=== PATIENT | female | born 1940 | race Caucasian/White ===

== ENCOUNTER 2024-10-08 23:19 | Inpatient (IN) | payer OTHER, SELFPAY ==
[2024-10-08 20:41] VITALS: BP 164/99
[2024-10-08 20:51] VITALS: BP 160/106
[2024-10-08 20:58] VITALS: BMI 22.6
[2024-10-08 21:00] VITALS: BP 164/118
--- NOTE | 2024-10-08 21:01 | ED.GENMED ---
History of Present Illness
General
Chief Complaint: Breathing Problem
Source: patient
Exam Limitations: none
Time Seen by Provider: 10/08/24 20:57
History of Present Illness
History of Present Illness:
See MDM
Past History
Past History
ED Past Medical History: COPD
ED Past Surgical History: None
Social History
Tobacco: Former smoker
Alcohol: None
Phy Exam
Physical Exam
Physical Exam:
See MDM
Scores
Heart Failure Risk
Heart Failure Risk Score: Yes
History of Stroke or TIA: No
History of intubation for respiratory distress: No
Heart rate on ED arrival >/= 110: Yes
SaO2 <90% on arrival on room air: Yes
HR >/=110 during 3min walk test (or too ill to perform test): Yes
ECG has acute ischemic changes: No
Urea >/=12mmol/L (BUN 33.6mg/dL): No
Serum CO2>/=35mmol/L: No
Troponin I or T elevated to AL Level (0.4mg/dL): No
NT-proBNP >/=5,000ng/L (5,000pg/ml): No
HF Risk Score: 3
Admission Status: HIGH RISK 15.9% Consider SNF treatment or admission to hospital
Course
Orders/Labs/Results
Orders:
Orders
10/08/24 20:54
Electrocardiogram (*1) Urgent
Reason for Study: Other
Other Reason for Exam: Respiratory Distress
Cardiac Monitoring- Treatment ONCE
EKG- Treatment ONCE
IV Insert/Care/Rem.- Treatment PRN
O2 Therapy [RESP] Urgent
Titrate/Wean O2 to maintain O2 sat greater than (%): 93
Special Instructions: TO MAINTAIN CONTINUOUS O2 SATS >/= 93%
Pulse Ox/cont/shift [RESP] Urgent
Quantity: 1
Special Instructions: continuous pulse ox
10/08/24 21:01
CT Chest Pe Study Urgent
Comment:
Reason For Exam: sudden onset sob and hypoxia
Albuterol Sulfate [Ventolin Nebules] 7.5 mg INH R NOW STA
Dexamethasone Sod Phosphate [Decadron] 10 mg IV NOW STA
Ipratropium Nebs [Atrovent Nebules] 1 mg INH R NOW STA
Portable Chest Xray [CR Chest Portable - 1 View] Urgent
Comment:
Reason For Exam: SOB
Reason Study Needs to be Portable: Patient Unstable
10/08/24 21:05
Complete Blood Count/With Diff Urgent
Comprehensive Metabolic Panel Urgent
NT-proBNP Urgent
Troponin I Urgent
10/08/24 21:31
Piperacillin/Tazo 3.375 Gram [Zosyn] 3.375 gram in 50 ml IV NOW
Vancomycin [Vancocin] 1,500 mg 0.9% Sodium Chloride 500 ml [Nss] 500 ml IV NOW
10/08/24 22:44
Furosemide [Lasix] 40 mg IV NOW STA
Abnormal Lab Results
10/08/24
21:05
MCHC 31.1 L g/dL
(33.0-37.0)
Lymphocytes % 20.2 L %
(20.5-51.1)
Eosinophils % 9.6 H %
(0-6)
Sodium 124 L mmol/L
(135-145)
Chloride 91 L mmol/L
(98-107)
Glucose 173 H mg/dl
(70-99)
AST 49 H U/L
(14-36)
10/08/24 21:05
10/08/24 21:05
Vital Signs
Initial and Last Documented VS:
Initial Vital Signs
Temp Pulse Resp BP Pulse Ox
97.9 F 135 30 164/99 60
10/08/24 20:41 10/08/24 20:41 10/08/24 20:41 10/08/24 20:41 10/08/24 20:41
Last Documented Vital Signs
Temp Pulse Resp BP Pulse Ox
97.9 F 125 25 164/118 90
10/08/24 20:41 10/08/24 21:30 10/08/24 21:15 10/08/24 21:00 10/08/24 21:30
MDM/Problems Addressed
Differential Diagnosis Includes:
HPI and MDM Narrative:
84-year-old female presenting with sudden onset of shortness of breath. She was dancing with her and developed sudden onset of shortness of breath. She sat down and the realized that she was extremely uncomfortable and had labored
breathing. On arrival, patient tachypneic and very short of breath. She was placed on a nonrebreather for hypoxia. Patient states this does not feel like her normal COPD. Patient has prolonged expiratory phase. Will give hour-long nebulizer
treatment and start IV steroid. Patient transition to BiPAP. Will obtain CT to rule out PE
Physical exam
General: Uncomfortable, labored breathing, conversational dyspnea
HEENT: protecting airway
Neck: appears supple
CV: No evidence of cyanosis. Tachycardic
Resp: No accessory muscle use. Prolonged expiratory phase. Poor air exchange
Abd: Non-distended
Extremities: Mild +1 pitting edema bilateral lower extremities
Neuro: alert
Psych: Anxious
Skin: Intact
Problems Addressed including Acute and Chronic Conditions affecting care:
1. Acute respiratory distress
Acuity: acute
Prognosis: unstable
Details: Patient requiring BiPAP. Will treat as COPD exacerbation with hour-long neb and steroids and will rule out PE
Updates
9:30 PM chest x-ray concerning for multifocal pneumonia. Patient started on vancomycin and Zosyn
10:45 PM patient able to be weaned off BiPAP. [facility] called indicating concern versus multifocal pneumonia or flash pulmonary edema. Will give dose of Lasix
Differential Diagnosis (but not limited to): COPD exacerbation, pulmonary embolism, flash pulmonary edema
Testing considered: D-dimer
Drug therapy (if applicable): OTC meds, please see d/c instruction regarding Rx drugs
Amount and/or Complexity of Data Reviewed
Clinical info obtained from: Patient
External data reviewed: N/A
Labs I independently reviewed (but not limited to): Elevated BNP
Radiology: X-ray independently reviewed: Chest x-ray concerning for multifocal pneumonia
Pulse Ox: hypoxic
EKG independently reviewed: Sinus tachycardia, left bundle branch block, no STEMI, rate related change
Teaching Manager: Sinus tachycardia
Critical Care: The high probability of a clinically significant, sudden or life threatening deterioration of the cardiopulmonary system(s) required my full and direct attention, intervention and personal management. The aggregate critical care time
was 35 minutes. This time is in addition to time spent performing reported procedures but includes the following:
[x] Data Review and interpretation
[x] Patient assessment and monitoring of vital signs
[x] Documentation
[x] Medication orders and management
Risk of Complication:
Social Determinants of health: Good social support
Discussed with other providers: hospitalist
Escalation of Care includes Admit/Obs: Given the flash pulm edema requiring supplemental oxygen, will admit
Occasional wrong word or 'sound a like' substitutions may have occurred due to the inherent limitations of voice recognition software. Read the chart carefully and recognize, using context, where substitutions have occurred.
*Critical Care Note
Total Time (30-74mins, 75-104mins- exclusive of procedures): 35 min
ED Attending Note
-
Portions of this chart may have been created with voice recognition software.� Occasional wrong word or��sound alike� substitutions may have occurred due to the inherent limitations of voice recognition software.
Discharge Plan
Departure
Patient Disposition: Admit
Date of Disposition: 10/08/24
Time of Disposition: 22:50
Admit to: Telemetry
Presentation/result/management discussed w/ accepting MD/DO: Hospitalist
Discharge Problem:
Flash pulmonary edema, Hypoxia
Prescriptions:
No Action
cetirizine [Zyrtec] 10 mg Tablet
10 mg PO DAILY
acetaminophen [Tylenol Arthritis] 650 mg Tablet Extended Release
PO
Systane (PF) 0.4-0.3 % Dropperette
omeprazole 20 mg Tablet,Delayed Release (Dr/Ec)
20 mg PO BID
Bevespi Aerosphere 9-4.8 mcg Hfa Aerosol Inhaler
2 puff INHALATION BID
aspirin 81 mg Capsule
81 mg PO DAILY
albuterol-budesonide 90-80 mcg/actuation Hfa Aerosol Inhaler
2 inh INHALATION ONCE
Rx Instructions:
as a single dose; may repeat up to 6 doses per day (12 inhalations)
Referrals:
Stephenie Anand DO [Family Provider] -
Interventions
Interventions:
*Risk Screen - Suicide Last Done: 10/08/24 20:41
*General Assessment Last Done: 10/08/24 20:41
*Neglect/Abuse Screening Last Done: 10/08/24 20:41
ED- Cardiac Assessment Last Done: 10/08/24 21:12
ED- Pulmonary Assessment Last Done: 10/08/24 21:12
Discharge Date and Time
Print Language: LITHUANIAN
[2024-10-08] MEDS: ATROVENT NEBULES 1 MG INH (21:06)
[2024-10-08] MEDS: VENTOLIN NEBULES 7.5 MG INH (21:06)
[2024-10-08] MEDS: DECADRON 10 MG IV (21:08)
[2024-10-08 21:14] LABS: % Basophils 1.4 % (0-2); % Eosinophils 9.6 % (0-6); % Immature Granulocytes 0.3 % (0-0.5); % Lymphocytes 20.2 % (20.5-51.1); % Monocytes 7.9 % (1.7-9.3); % Neutrophils 60.6 % (42.2-75.2); Absolute Basophils 0.1 10^3/uL (0-0.2); Absolute Eosinophils 0.6 10^3/uL (0-0.7); Absolute Lymphocytes 1.3 10^3/uL (1.2-3.4); Absolute Monocytes 0.5 10^3/uL (0.1-0.6); Absolute Neutrophils 3.9 10^3/uL (1.4-6.5); Hematocrit 40.8 % (37.0-47.0); Hemoglobin 12.7 g/dL (12.0-16.0); Mean Corp Hgb Conc. 31.1 g/dL (33.0-37.0); Mean Corpuscular Hgb 27.7 pg (27.0-31.0); Mean Corpuscular Volume 89.1 fL (81.0-99.0); Mean Platelet Volume 8.3 fL (7.4-10.4); Nucleated Red Blood Cells % 0 %; Platelet Count 316 10^3/uL (130-400); Red Blood Cell Count 4.58 10^6/uL (4.20-5.40); Red Cell Dist. Width 14.5 % (11.5-14.5); White Blood Cell Count 6.5 10^3/uL (4.8-10.8)
[2024-10-08 21:35] LABS: ALT (SGPT) 27 U/L (0-35); AST (SGOT) 49 U/L (14-36); Albumin 4.5 g/dl (3.5-5.0); Alkaline Phosphatase 57 U/L (38-126); Blood Urea Nitrogen 12 mg/dl (7-17); Calcium 9.3 mg/dl (8.4-10.2); Carbon Dioxide 24 mmol/L (22-30); Chloride 91 mmol/L (98-107); Glucose 173 mg/dl (70-99); Potassium 4.6 mmol/L (3.5-5.1); Sodium 124 mmol/L (135-145); Total Bilirubin 0.3 mg/dl (0.2-1.3); Total Protein 6.6 g/dl (6.3-8.2); eGFR > 60.00
[2024-10-08] MEDS: ZOSYN 50 IV (21:36)
[2024-10-08 21:37] LABS: NT-proBNP 4130 pg/ml; Troponin I < 0.012 ng/ml
[2024-10-08 22:00] VITALS: BP 112/65
[2024-10-08] MEDS: LASIX 40 MG IV (22:48)
[2024-10-08 23:00] VITALS: BP 128/66
--- NOTE | 2024-10-08 23:22 | HPS.HSE ---
Family Physician
-
Family Physician: Stephenie Anand
Chief Complaint
-
shortness of breath
History of Present Illness
84-year-old female past medical history of COPD, history of aspergillosis, osteoporosis, unspecified tachycardia, GERD, Pino's esophagus, presenting with acute onset of shortness of breath and chest pressure while dancing with her friends
tonight. She denies any sore throat or fevers or chills.
Patient's physicians are at [facility].
For the past few months she has been having shortness of breath intermittently. She has chronic cough somewhat productive at baseline. She was treated with antibiotics and steroids 3 months ago.
She does have some lower extremity edema at baseline. She has recently been losing weight over the past several months.
She denies any history of smoking in the past. She denies alcohol.
She has a history of pain on the right upper quadrant under her ribs for which she has had an ultrasound in the past ruling out gallstones. This was thought to be secondary to GERD in the past. Pain has returned in the past few months.
She drinks 4 water bottles per day and 2 cups of coffee per day which is normal for her.
She has had father with MT. Her mother had valvular heart disease.
Medical History
Past Medical History
Past Medical History: Reports Other (COPD, history of aspergillosis, osteoporosis, unspecified tachycardia, GERD, Pino's esophagus,)
Past Surgical History: Reports Other ( Tonsillectomy, tubal ligation, appendectomy, right breast cyst removed, right bunion removed, hammertoe repair, left bunion improved, small toe repleted, LEAP surgery, cataract surgery, right foot arthroplasty
of second toe )
Social History
Tobacco: Non-smoker
Alcohol: None
Drug: None
Family History
Family History: Other ( She has had father with MT. Her mother had valvular heart disease.)
Allergies / Home Medications
Allergies reflects when Allergies were last updated in [facility].
Home Medications with original date entered in [facility]
Allergy/Medication List:
Allergies
Allergy/AdvReac Type Severity Reaction Status Date / Time
alendronate sodium Allergy Pharmacy Verified 10/08/24 21:04
to Review
codeine Allergy Swelling Verified 10/08/24 21:04
voriconazole Allergy Itching Verified 10/08/24 21:04
Home Medications
acetaminophen 650 mg tablet,extended release mg PO 10/08/24
albuterol 90 mcg-budesonide 80 mcg/actuation HFA aerosol inhaler 2 inh inhalation ONCE 10/08/24
aspirin 81 mg capsule 81 mg PO DAILY 10/08/24
cetirizine 10 mg tablet (Zyrtec) 10 mg PO DAILY 10/08/24
glycopyrrolate 9 mcg-formoterol 4.8 mcg HFA aerosol inhaler (Bevespi Aerosphere) 2 puff inhalation BID 10/08/24
omeprazole 20 mg tablet,delayed release 20 mg PO BID 10/08/24
peg 400-propylene glycol (PF) 0.4 %-0.3 % eye drops in a dropperette (Systane (PF)) drp 10/08/24
Review of Systems
-
History Source: Patient
A 12 point ROS was completed and negative except as noted: Yes
Constitutional: Reports No Symptoms
EENT: Reports No Symptoms
Respiratory: Reports See HPI
Cardiac: Reports See HPI
Abdomen/GI: Reports No Symptoms
: Reports No Symptoms
Musculoskeletal: Reports No Symptoms
Skin: Reports No Symptoms
Neurological: Reports No Symptoms
Endocrine: Reports No Symptoms
Hematologic/Lymphatic: Reports No Symptoms
Psych: Reports No Symptoms
Physical Exam
Vital Signs
Vital Signs
Temp Pulse Resp BP Pulse Ox
97.9 F 122 25 112/65 90
10/08/24 20:41 10/08/24 22:48 10/08/24 21:15 12/14/24 22:48 10/08/24 21:30
Physical Exam
General: Well Developed, Well Nourished and No Apparent Distress
HEENT: NormoCephalic, Moist mucous membranes and Atraumatic
Respiratory: Decreased Breath Sounds
Cardiac: S1/S2, Regular Rhythm and Peripheral Edema; No Murmur or Rub
GI: Soft, Non Tender, Non Distended and Normal Bowel Sounds; No Organomegaly
Rectal: Deferred by Provider
Musculoskeletal: No Clubbing, No Cyanosis and No Edema
Skin: No Rash
Neuro: Nonfocal/grossly intact
Laboratory Results
-
10/08/24 21:05
10/08/24 21:05
Laboratory Results
Total Bilirubin 0.3 mg/dl (0.2-1.3) 10/08/24 21:05
AST 49 U/L (14-36) H 10/08/24 21:05
ALT 27 U/L (0-35) 10/08/24 21:05
Alkaline Phosphatase 57 U/L (38-126) 10/08/24 21:05
Troponin I < 0.012 ng/ml 10/08/24 21:05
Data Reviewed
-
Lab Data: Labs Reviewed by me
Old Records: Reviewed
Impression/Plan
-
IMPRESSION:
PLAN:
# Acute hypoxemic respiratory failure/flash pulmonary edema likely due to acute CHF exacerbation
-CT chest shows multifocal consolidation groundglass opacities centrally and dependently predominant with interlobular septal thickening likely representing acute decompensated pulmonary edema, multifocal pneumonia can also appear similarly, no
evidence of PE, trace bilateral pleural effusions, trace pericardial effusion
-EKG shows sinus tachycardia, left bundle branch block without any prior for comparison
-Troponin negative
-Cardiac BNP 4000
-Patient initially on BiPAP but weaned off and currently on 5 L
-Check I's and O's
-40 IV Lasix daily
-Check echo
-Cardiology consulted
-Patient also given vancomycin/Zosyn, dexamethasone and DuoNebs to treat COPD exacerbation and pneumonia although unlikely, discontinue further
# Likely chronic hyponatremia secondary to CHF exacerbation/polydipsia
-33 ounce fluid restriction
-Check urine sodium, osmolality
-Monitor with diuresis
History of unspecified tachycardia
-Patient not sure if she has had A-fib, denies history of blood thinners
-Continue aspirin
-Continue verapamil
History of COPD
-Never smoked
-DuoNebs as needed
History of aspergillosis
Osteoporosis
GERD/Pino's esophagus
-Continue omeprazole
History of sternal abnormality
Full code
DVT prophylaxis�heparin
Cardiac diet
[2024-10-09] MEDS: VANCOCIN 530 MG IV (00:19)
--- NOTE | 2024-10-09 00:45 | PTCARENOTE ---
Addendum entered by Lorie Gamboa RN 10/09/24 02:22:
Pt arrived on unit via stretcher on 5L of O2 and Vancomycin infusing. Patient put on tele monitor and continuous pulse ox. Patient in sinus tach with a PVC. 97% on continuous pulse ox. Patient verbalized during suicide screening that she has been
depressed within the last 2 weeks and thoughts of harming herself within the past 5 years. Patient states she has no current thoughts of harming herself and no current plan. Safe environment maintained.
Original Note:
Pt arrived on unit via stretcher. Patient walked into room. A&Ox3. Patient oriented to unit. Call light within reach. Care ongoing.
[2024-10-09 02:25] LABS: Osmolality Urine 311 mOsm/kg (300-900)
[2024-10-09 02:33] LABS: Urine Sodium 124 mmol/L (30-90)
[2024-10-09 03:00] VITALS: BP 95/58
[2024-10-09 06:00] VITALS: BMI 20.6
[2024-10-09 06:44] LABS: % Basophils 0.3 % (0-2); % Eosinophils 0.3 % (0-6); % Immature Granulocytes 0.3 % (0-0.5); % Lymphocytes 7.4 % (20.5-51.1); % Monocytes 3.7 % (1.7-9.3); Absolute Lymphocytes 0.3 10^3/uL (1.2-3.4); Absolute Monocytes 0.1 10^3/uL (0.1-0.6); Absolute Neutrophils 3.1 10^3/uL (1.4-6.5); Hematocrit 33.6 % (37.0-47.0); Hemoglobin 11.3 g/dL (12.0-16.0); Mean Corp Hgb Conc. 33.6 g/dL (33.0-37.0); Mean Corpuscular Hgb 28.4 pg (27.0-31.0); Mean Corpuscular Volume 84.4 fL (81.0-99.0); Mean Platelet Volume 8.2 fL (7.4-10.4); Nucleated Red Blood Cells % 0 %; Platelet Count 248 10^3/uL (130-400); Red Blood Cell Count 3.98 10^6/uL (4.20-5.40); Red Cell Dist. Width 14.1 % (11.5-14.5); White Blood Cell Count 3.5 10^3/uL (4.8-10.8)
[2024-10-09 07:06] LABS: ALT (SGPT) 23 U/L (0-35); AST (SGOT) 41 U/L (14-36); Albumin 3.9 g/dl (3.5-5.0); Alkaline Phosphatase 40 U/L (38-126); Blood Urea Nitrogen 11 mg/dl (7-17); Calcium 8.1 mg/dl (8.4-10.2); Carbon Dioxide 23 mmol/L (22-30); Chloride 92 mmol/L (98-107); Estimated Creatinine Clearance 52 ml/min; Glucose 138 mg/dl (70-99); Potassium 4.7 mmol/L (3.5-5.1); Sodium 124 mmol/L (135-145); Total Bilirubin 0.3 mg/dl (0.2-1.3); Total Protein 5.9 g/dl (6.3-8.2); eGFR > 60.00
[2024-10-09 07:56] VITALS: BP 94/56
[2024-10-09] MEDS: LASIX 40 MG IV (09:25)
[2024-10-09] MEDS: PROTONIX 40 MG PO (09:26)
[2024-10-09] MEDS: HEPARIN 5000 UNITS SC ×2 (09:26→20:08)
[2024-10-09] MEDS: LOW STRENGTH ASPIRIN 81 MG PO (09:26)
[2024-10-09] MEDS: ZYRTEC 10 MG PO (09:26)
[2024-10-09 11:15] VITALS: BP 101/57
--- NOTE | 2024-10-09 14:30 | W.PN.HOSP.TC ---
Today's Communication/Plan
-
Assessment / Plan
Assessment / Plan
Acute hypoxemic respiratory failure secondary to acute chf exacterbation, unknown EF
-iv diuretics
-montiro daily weight
-monitor renal function
-i/o's
-wean o2
-leep K >4
-keep Mg >2
-cards consult
-2d echo
Hypervolemic hyponatremia
-fluid restrict
-check Vita UOsm if not improving
Hx of unspecified tachycardia
-On asa and CCB
GERD
-Contineu ppi
Anticipated Discharge: > 48 hours
Subjective/Interval History
-
Date of Service: October 09, 2024
seen and exmained
no new complaints
no acute ovenight event
Objective Data
-
Labs:
Laboratory Results
10/09/24
05:50
WBC 3.5 L
Hgb 11.3 L
Hct 33.6 L
Plt Count 248 D
Sodium 124 L
Potassium 4.7
Chloride 92 L
Carbon Dioxide 23
BUN 11
Creatinine 0.6
Glucose 138 H
Calcium 8.1 L
Total Bilirubin 0.3
AST 41 H
ALT 23
Alkaline Phosphatase 40
Vital Signs:
Vital Signs
Temp Pulse Resp BP Pulse Ox
99.7 F 105 18 101/57 97
10/09/24 11:15 10/09/24 11:15 10/09/24 11:15 10/09/24 11:15 10/09/24 11:15
I&O
10/08/24 10/09/24 10/10/24
06:59 06:59 06:59
Output Total 650 / 650
Balance -650 / -650
Physical Exam
-
General: No Apparent Distress and Comfortable
HEENT: Normocephalic, Atraumatic and Moist Mucous Membranes
Respiratory: Crackles
Cardiac: Regular Rhythm and S1/S2
GI: Soft, Nontender, Nondistended and Normal Bowel Sounds
Musculoskeletal: No Clubbing, No Cyanosis, Edema, Right Lower Extrem and Edema, Left Lower Extrem
Skin: Warm and Dry
Neuro: Awake, Alert, Oriented and AO x 3
Psych: Calm
[2024-10-09 15:30] VITALS: BP 94/51
--- NOTE | 2024-10-09 17:33 | CON.CAR ---
Consultation
Consultation Request
Requesting Provider: Cole
Performing Provider: Carri
Reason for Consultation: HF
Medical History
-
Chief Complaint: SOB, cough
History of Present Illness:
Patient is a pleasant 84-year-old female with a past medical history significant for COPD, aspergillosis (pulmonary), osteoporosis, unspecified tachycardia on rate controlling agents, GERD who presented the emergency department due to worsening
shortness of breath, cough, chest pressure. Patient reported shortness of breath and cough over the preceding prior few days and noted the chest pressure associated with the cough. She noted that she was sleeping more upright in bed and some lower
extremity swelling. Patient reports that she follows with the [facility] where all of her physicians are located. Patient reports that she is undergoing cardiac testing but cannot recall the results. Patient noted on admission to
have a left bundle branch block with sinus tachycardia on ECG, troponin negative, BNP 4130 with hyponatremia. Chest x-ray demonstrated bilateral pleural effusions with bibasilar airspace opacities representing edema versus pneumonia. Patient is a
non-smoker, no alcohol, no illicits. No reported significant early family history of heart disease.
Past Medical History
Past Medical History: Other (See HPI)
Past Surgical History: Other (Tonsillectomy, tubal ligation, appendectomy, right breast cyst removed, right bunion removed, hammertoe repair, left bunion improved, small toe repleted, LEAP surgery, cataract surgery, right foot arthroplasty of second
toe )
Social History
Tobacco: Non-Smoker
Alcohol: None
Drug: None
Employment: Retired
Family History
Family History: Other (CT, valvular heart disease)
Allergies / Home Medications
Allergy/AdvReac Type Severity Reaction Status Date / Time
alendronate sodium Allergy Pharmacy Verified 10/08/24 21:04
to Review
codeine Allergy Swelling Verified 10/08/24 21:04
voriconazole Allergy Itching Verified 10/08/24 21:04
�Medication �Instructions �Recorded �Confirmed �Type
acetaminophen 650 mg mg PO 10/08/24 History
tablet,extended release
albuterol 90 mcg-budesonide 80 2 inh inhalation ONCE 10/08/24 10/08/24 History
mcg/actuation HFA aerosol inhaler
aspirin 81 mg capsule 81 mg PO DAILY 10/08/24 10/08/24 History
cetirizine 10 mg tablet (Zyrtec) 10 mg PO DAILY 10/08/24 10/08/24 History
glycopyrrolate 9 mcg-formoterol 2 puff inhalation BID 10/08/24 10/08/24 History
4.8 mcg HFA aerosol inhaler
(Bevespi Aerosphere)
omeprazole 20 mg tablet,delayed 20 mg PO BID 10/08/24 10/08/24 History
release
peg 400-propylene glycol (PF) 0.4 drp 10/08/24 History
%-0.3 % eye drops in a dropperette
(Systane (PF))
verapamil 120 mg tablet 120 mg PO DAILY 10/08/24 10/08/24 History
Review of Systems
-
History Source: Patient
All other systems: Negative unless noted
Constitutional: No Symptoms
EENT: No Symptoms
Respiratory: Cough and Trouble Breathing
Cardiac: Chest Pain (Associated with cough)
Abdomen/GI: No Symptoms
: No Symptoms
Musculoskeletal: Edema
Skin: No Symptoms
Neurological: No Symptoms
Endocrine: No Symptoms
Hematologic/Lymphatic: No Symptoms
Physical Exam
Vital Signs
Temp Pulse Resp BP Pulse Ox
98.5 F 109 18 94/51 98
10/09/24 15:30 10/09/24 15:30 10/09/24 15:30 10/09/24 15:30 10/09/24 15:30
physical exam:
GENERAL: no acute distress, nasal cannula, cachectic
EYE: sclera anicteric
NECK: Supple, no JVD, no carotid bruit appreciated
ENT: normal nose, moist mucosal membranes
CARDIAC: Regular rate and rhythm, +S1/S2, no murmur, rubs, or gallops
CHEST/PULMONARY: Normal effort, bibasilar crackles, decreased breath sounds globally
ABDOMEN: Soft, without focal tenderness or distention
NEUROLOGICAL: Alert and oriented x3
SKIN: Warm and dry, no rash; 1+ pitting edema bilaterally
PSYCH: Normal and appropriate interaction.
Lab Results
10/09/24 05:50
10/09/24 05:50
Troponin I < 0.012 ng/ml 10/08/24 21:05
Guf-V-Ogcqeafgcqc Pept 4130 pg/ml 10/08/24 21:05
Impression / Plan
-
Family Physician: Stephenie Anand
Cardiology: [facility]
.
Assessment:
Acute hypoxic respiratory failure likely multifactorial
� Noted history of COPD and prior pulmonary infection with aspergillosis
� No reported history of heart failure, BNP greater than 4000, pulmonary edema/effusion on chest x-ray
� Concern for infection as well on imaging
Heart failure, unspecified EF
� BNP greater than 4000, EKG sinus left bundle branch block
� Troponin negative
� Checks x-ray evidence of pulmonary edema/effusion
� Reported outpatient cardiology with prior testing however no records available at this time
� Evidence of heart failure on exam with crackles, lower extremity swelling
Hyponatremia in the setting of above
Tachycardia, asymptomatic, chronic
� On verapamil, aspirin
� No reported history of AF
Left bundle branch block, unclear chronicity
History of aspergillosis
History of COPD
Osteoporosis
GERD
History of sternal abnormality
Plan:
� Agree with IV diuresis with Lasix 40 mg daily
� Obtain 2D echocardiogram to assess cardiac size, shape, function, and valvular anatomy in the setting of likely acute heart failure
� Wean O2 as tolerated
� Defer COPD/infection management to primary service
� Obtain medical records from primary cardiology
� Patient with left bundle branch block with unknown chronicity. May require ischemic evaluation pending echocardiogram or following assessment of patient's medical record if no left bundle branch block reported previously
� Strict intake, output, daily weights; monitor renal function; repeat electrolytes with goal potassium greater than 4, magnesium greater than 2
� Monitor on telemetry
Data Reviewed
-
EKG: Tracing Personally Visualized and interpreted
Radiology: Report Reviewed by me
Labs: Labs Reviewed by me
[2024-10-09] MEDS: TESSALON PERLES 100 MG PO (18:19)
[2024-10-09 19:30] VITALS: BP 106/57
[2024-10-09] MEDS: TYLENOL 650 MG PO (20:55)
--- NOTE | 2024-10-09 22:58 | PTCARENOTE ---
pt with a temp of 102.4 @ start of shift. AUDIT CONTROL CLERK notified and blood cultures ordered. Pt given tylenol and blood cultures sent to the lab.
[2024-10-09 23:21] VITALS: BP 104/55
[2024-10-10 03:12] VITALS: BP 106/54
[2024-10-10 06:00] VITALS: BMI 20.5
[2024-10-10 06:00] LABS: Procalcitonin 0.33 ng/ml (0.0-0.25)
[2024-10-10] MEDS: TESSALON PERLES 100 MG PO (06:40)
[2024-10-10] MEDS: TYLENOL 650 MG PO (07:21)
[2024-10-10 07:43] VITALS: BP 117/72
[2024-10-10] MEDS: LASIX 40 MG IV (08:57)
[2024-10-10] MEDS: ZYRTEC 10 MG PO (08:57)
[2024-10-10] MEDS: PROTONIX 40 MG PO (08:57)
[2024-10-10] MEDS: CALAN EXTENDED RELEASE 120 MG PO (08:57)
[2024-10-10] MEDS: LOW STRENGTH ASPIRIN 81 MG PO (08:57)
[2024-10-10] MEDS: HEPARIN 5000 UNITS SC ×2 (08:58→20:03)
[2024-10-10 09:01] VITALS: BMI 20.5
--- NOTE | 2024-10-10 09:44 | PHA.VAN.IN ---
Assessment
- Assessment
Renal Function: Appears similar to baseline
Concomitant Antimicrobials: piperacillin/tazobactam
AUC Dosing Plan
- Dosing Variables
Dosing Weight (kg): 48
Dosing CrCl (ml/min): 45-52
Vd coefficient (L/kg): 0.7
- Empiric Dosing
Initial / Loading Dose: 1500mg - 10/09 00:19
Maintenance Regimen: Vanc 750mg Q24H - first dose now then 0600
Estimated AUC (mcg*h/mL): 480 - 546
Estimated Peak (mcg*h/mL): 32.8 - 35.3
Estimated Trough (mcg/ml): 11 - 13.5
Estimated Half Life (H): 14.6 - 16.6
- Monitoring
No levels ordered at this time: consider levels in next few days
MRSA Screen: Ordered per protocol
Pharmacokinetics Vancomycin I
- -
Patient Age: 84
Patient Sex: Female
Vancomycin Day #: 1
Indication: Pulmonary/Respiratory
Requesting Provider: Dr. Manisha Gibbons
Pertinent Antimicrobial Allergies:
voriconazole - itching
Height / Weight:
Height 5 ft
Actual Weight 47.673 kg
- Vital Signs / Lab Results
Temp Pulse Resp BP Pulse Ox
101.5 F H 130 16 117/72 91
10/10/24 07:43 10/10/24 07:43 10/10/24 07:43 10/10/24 07:43 10/10/24 07:43
Lab Results - Hematology
10/08/24 10/09/24
21:05 05:50
WBC 6.5 3.5 L
Lab Results - Chemistry
10/08/24 10/09/24
21:05 05:50
BUN 12 11
Creatinine 0.6 0.6
Estimated Creat Clear 52
Albumin 4.5 3.9
[2024-10-10 10:04] LABS: Hematocrit 35.8 % (37.0-47.0); Hemoglobin 11.6 g/dL (12.0-16.0); Mean Corp Hgb Conc. 32.4 g/dL (33.0-37.0); Mean Corpuscular Hgb 28.2 pg (27.0-31.0); Mean Corpuscular Volume 87.1 fL (81.0-99.0); Mean Platelet Volume 8.4 fL (7.4-10.4); Platelet Count 241 10^3/uL (130-400); Red Blood Cell Count 4.11 10^6/uL (4.20-5.40); Red Cell Dist. Width 14.6 % (11.5-14.5); White Blood Cell Count 3.9 10^3/uL (4.8-10.8)
[2024-10-10] MEDS: ZOSYN 50 IV (10:36)
[2024-10-10 10:40] LABS: COVID-19 Antigen Positive (Negative)
[2024-10-10 11:03] LABS: Blood Urea Nitrogen 17 mg/dl (7-17); Calcium 8.9 mg/dl (8.4-10.2); Carbon Dioxide 26 mmol/L (22-30); Chloride 92 mmol/L (98-107); Estimated Creatinine Clearance 45 ml/min; Glucose 143 mg/dl (70-99); Sodium 128 mmol/L (135-145); eGFR > 60.00
[2024-10-10 11:15] VITALS: BP 103/52
--- NOTE | 2024-10-10 11:28 | W.PN.CARDCBS ---
Today's Communication / Plan
-
Cont with IV diuresis. admit pBNP greater than 4000, pulmonary edema/effusion on chest x-ray
Echo pending.
Wean O2 as able
Cont tx broad spectum abx as per primary service and supportive care COVID
Obtain medical records from primary cardiology
Given LBBB which may be new, eventual consideration for outpt ischemic eval
Cont tele
Discussed with nursing.
Impression / Plan
-
.
Family Physician: Stephenie Anand
Cardiology: [facility]
.
Impression:
Acute hypoxic respiratory failure likely multifactorial
HF
Hyponatremia
LBBB, unclear chronicity
Now COVID +
History of aspergillosis
History of COPD
Osteoporosis
GERD
History of sternal abnormality
Plan:
Cont with IV diuresis. admit pBNP greater than 4000, pulmonary edema/effusion on chest x-ray
Echo pending.
Wean O2 as able
Cont tx broad spectum abx as per primary service and supportive care COVID
Obtain medical records from primary cardiology
Given LBBB which may be new, eventual consideration for outpt ischemic eval
Cont tele
Discussed with nursing.
Progress Note - Patrol Deputy Sheriff
Subjective
Date of Service: October 10, 2024
Pt seen and examined. No chest pain or shortness of breath.
Objective
Labs:
10/10/24 09:49
10/10/24 09:49
Labs
Hgb 11.6 g/dL (12.0-16.0) L 10/10/24 09:49
Hct 35.8 % (37.0-47.0) L 10/10/24 09:49
Plt Count 241 10^3/uL (130-400) 10/10/24 09:49
Sodium 128 mmol/L (135-145) L 10/10/24 09:49
Potassium 4.0 mmol/L (3.5-5.1) 10/10/24 09:49
BUN 17 mg/dl (7-17) 10/10/24 09:49
Creatinine 0.7 mg/dL (0.6-1.0) 10/10/24 09:49
Glucose 143 mg/dl (70-99) H 10/10/24 09:49
Troponins
10/08/24
21:05
Troponin I < 0.012
Vital Signs and I&O:
Vital Signs
Temp Pulse Resp BP Pulse Ox
98.1 F 105 16 103/52 96
10/10/24 11:15 10/10/24 11:15 10/10/24 11:15 10/10/24 11:15 10/10/24 11:15
Vital Signs
Temp Pulse Resp BP Pulse Ox
98.1 F 105 16 103/52 96
10/10/24 11:15 10/10/24 11:15 10/10/24 11:15 10/10/24 11:15 10/10/24 11:15
Intake & Output
10/08/24 10/09/24 10/10/24 10/11/24
06:59 06:59 06:59 06:59
Intake Total 720 / 720
Output Total 650 / 650 950 / 950
Balance -650 / -650 -230 / -230
Physical Exam
Physical Exam
General: No acute distress, AAOX3
Neck: Negative JVD
Heart: Regular, Negative S3 positive S1/S2, Negative S4, No murmur
Lungs: CTA b/l, negative wheezes/rales/rhonchi
Abd: Positive BS, NT/ND, neg rebound/rigidity/guarding
Ext: Negative cyanosis/clubbing/edema
Neuro: nonfocal
[2024-10-10] MEDS: VANCOCIN 150 IV (12:08)
--- NOTE | 2024-10-10 13:01 | W.PN.HOSP.TC ---
Today's Communication/Plan
-
Assessment / Plan
Assessment / Plan
General: No Apparent Distress and Comfortable
HEENT: Normocephalic, Atraumatic and Moist Mucous Membranes
Respiratory: Crackles
Cardiac: Regular Rhythm and S1/S2
GI: Soft, Nontender, Nondistended and Normal Bowel Sounds
Musculoskeletal: No Clubbing, No Cyanosis, Edema, Right Lower Extrem and Edema, Left Lower Extrem
Skin: Warm and Dry
Neuro: Awake, Alert, Oriented and AO x 3
Acute hypoxemic respiratory failure secondary to acute chf exacerbation, unknown EF or could even be multifactorial as she is covid +
-iv diuretics
-montiro daily weight
-monitor renal function
-i/o's
-wean o2
-leep K >4
-keep Mg >2
-cards following
-2d echo
Covid +, hypoxic
-Will start steroids
-Wean o2
-Iso preacution with drop/contact
-Continue DVT ppx
Sepsis secondary to acute viral syndrome
-Will check bcx
-Will check sputum cx
-Check legionella and strep UA
-Started on IV Atb, pennie can dc as I suspect this is related to acute viral syndrome
Hypervolemic hyponatremia
-fluid restrict
-check Vita UOsm if not improving
Hx of unspecified tachycardia
-On asa and CCB
GERD
-Contineu ppi
Anticipated Discharge: > 48 hours
Subjective/Interval History
-
Date of Service: October 10, 2024
seen and examined
no new complaints
states that she is feeling better
overnight had a temp and again this AM
covid flu ordered
[facility] on Thursday of , she was just informed by her friend that someone had covid.
-symptoms began on Thursday
Objective Data
-
Labs:
Laboratory Results
10/10/24
09:49
WBC 3.9 L
Hgb 11.6 L
Hct 35.8 L
Plt Count 241
Sodium 128 L
Potassium 4.0
Chloride 92 L
Carbon Dioxide 26
BUN 17
Creatinine 0.7
Glucose 143 H
Calcium 8.9
Vital Signs:
Vital Signs
Temp Pulse Resp BP Pulse Ox
98.1 F 105 16 103/52 96
10/10/24 11:15 10/10/24 11:15 10/10/24 11:15 10/10/24 11:15 10/10/24 11:15
I&O
10/09/24 10/10/24 10/11/24
06:59 06:59 06:59
Intake Total 720 / 720
Output Total 650 / 650 950 / 950
Balance -650 / -650 -230 / -230
[2024-10-10] MEDS: DECADRON 4 MG PO ×2 (13:47→20:04)
--- NOTE | 2024-10-10 15:02 | W.PN.UPDATE ---
Update Note
Progress Note Update
Called patient's primary machine assembler for puller over to obtain most recent echo and office note, records received and summarized as below.
Echo 12/07/2020: Normal LVEF 60%, trace MR, aortic valve trileaflet without evidence of stenosis
Patient last saw her machine assembler for puller over on 08/29/2024 in follow-up for history of SVT and syncope.
Patient wore a 24-hour Holter monitor 11/12/2020 that showed NSR with 2 short runs of SVT
Patient sees a answering service agent in [place] named Dr. Werner
Patient has a history of sternal fracture in the setting of a fall 08/2019.
--- NOTE | 2024-10-10 15:37 | CM ---
Alert awake oriented patient who lives alone at 57 [address] [place] at [facility] in a 2 story home with 1 steps to enter and bed/bathroom on first floor. She is independent in driving and all activates of daily living.She has no adaptive devices. Pt
dx with Covid.She is currently on new oxygen 2 liters.
No VN in past . No SNF hx
Pharmacy [facility]
PCP Dr Anand
PLAN Home no needs
[2024-10-10 16:11] VITALS: BP 114/65
[2024-10-10] MEDS: STRIVERDI RESPIMAT INH (18:10)
[2024-10-10 19:00] VITALS: BP 105/55
[2024-10-10 19:55] VITALS: BMI 20.5
[2024-10-10 23:00] VITALS: BP 104/66
[2024-10-11] VITALS (7 sets, daily range): BP systolic 95–123; BP diastolic 55–71; BMI 20.2
[2024-10-11] MEDS: ROBITUSSIN 200 MG PO ×2 (00:52→14:44)
--- NOTE | 2024-10-11 02:36 | PTCARENOTE ---
Notified overnight ADVERTISING SALES REPRESENTATIVE regarding pt's cough, ADVERTISING SALES REPRESENTATIVE ordered Q4 Robitussin.
[2024-10-11 06:52] LABS: Hematocrit 33.2 % (37.0-47.0); Hemoglobin 10.8 g/dL (12.0-16.0); Mean Corp Hgb Conc. 32.5 g/dL (33.0-37.0); Mean Corpuscular Hgb 28.4 pg (27.0-31.0); Mean Corpuscular Volume 87.4 fL (81.0-99.0); Mean Platelet Volume 8.5 fL (7.4-10.4); Platelet Count 205 10^3/uL (130-400); Red Cell Dist. Width 14.3 % (11.5-14.5)
[2024-10-11 07:02] LABS: Blood Urea Nitrogen 17 mg/dl (7-17); Calcium 8.5 mg/dl (8.4-10.2); Carbon Dioxide 31 mmol/L (22-30); Chloride 91 mmol/L (98-107); Estimated Creatinine Clearance 52 ml/min; Glucose 100 mg/dl (70-99); Potassium 4.5 mmol/L (3.5-5.1); Sodium 129 mmol/L (135-145); eGFR > 60.00
[2024-10-11] MEDS: LASIX 40 MG IV (07:48)
[2024-10-11] MEDS: HEPARIN 5000 UNITS SC ×2 (07:48→21:12)
[2024-10-11] MEDS: DECADRON 4 MG PO ×4 (07:49→21:12)
[2024-10-11] MEDS: PROTONIX 40 MG PO (07:49)
[2024-10-11] MEDS: CALAN EXTENDED RELEASE 120 MG PO (07:49)
[2024-10-11] MEDS: LOW STRENGTH ASPIRIN 81 MG PO (07:49)
[2024-10-11] MEDS: ZYRTEC 10 MG PO (07:49)
--- NOTE | 2024-10-11 11:03 | PN.CDI ---
CDI
- -
CDI:
Physician Documentation Request
Admit Date: 10/08/24 23:19
Dear Doctor Shai,
Please review the following and provide your response in the progress notes.
Clinical Indicators:
Pt admitted with Acute Hypoxic Respiratory Failure/ CHF / COVID-19
Progress note 10/10, ' Covid +, hypoxic...Sepsis secondary to acute viral syndrome...overnight had a temp and again this AM...while at bedside state that she was at a dance on Thursday of last week, she was just informed by her friend that
someone had covid. symptoms began on Thursday...'
On admission HR 138, respirations 37, Tmax 102.4 ( 10/09 @1930)
Please specify the suspected POA status of sepsis :
Sepsis- POA
- Systemic manifestations of infection, with 2 or more SIRS criteria which include:
- Fever >100.4 degrees F or hypothermia < 96.8 degrees F
- Leukocytosis - WBC > 12,000 or leukopenia - WBC < 4,000 or > 10% bands
- Tachycardia > 90 beats per minute
- Tachypnea - RR > 20 breaths per minute or PaCO2 , 32mmHg
Source: Merck Manual 2013
Sepsis-Evolved during hospitalization
Other
Use of terms such as suspected, likely, concern for, or probable (associated with a specific diagnosis that is being evaluated, monitored, or treated as if it exists) are acceptable and can be coded in the inpatient setting, when documented at the
time of discharge.
Thank you,
Celeste Jaime RN
CDI Specialist
[employer]
Please use your independent medical judgment in providing your response.
--- NOTE | 2024-10-11 11:47 | W.PN.CARDCBS ---
Addendum entered and electronically signed by Demond Tobias MD 10/11/24 14:28:
I saw and examined the patient.
The Armed Custom Protection Officer's note was reviewed and I agree with the note.
Comment:
GEN: No distress, awake, Ox3
HEENT: supple, anicteric, mmm
LUNGS: scatt rhonchi
CV: Reg, S1/S2, 1/6 syst LSB, no gallop
ABD: soft, BS+, NT/ND
EXT: No edema
NEURO: Gross non-focal
SKIN: No rash
Plan:
Diuresing and improving. Wean oxygen as tolerated. Will switch to Lasix 40 mg daily in AM. Creatinine overall normal.
Remains in sinus rhythm. Continue verapamil for history of SVT.
Continue Paxlovid and steroids for COVID.
Original Note:
Today's Communication / Plan
-
follow volume status, consider transition to po
wean supp O2 as able
in SR
supportive care of covid illness
Impression / Plan
-
.
Family Physician: Stephenie Anand
Cardiology: Dr. Eh Chavez, [facility]
.
Impression:
Acute hypoxic respiratory failure likely multifactorial
COVID +
Acute HFpEF
Hyponatremia
LBBB, unclear chronicity
SVT
History of syncope
History of aspergillosis
History of COPD
Osteoporosis
GERD
History of sternal fracture in the setting of a fall 08/2019
Holter monitor 11/12/2020 that showed NSR with 2 short runs of SVT
Echo 12/07/2020: Normal LVEF 60%, trace MR, aortic valve trileaflet without evidence of stenosis
ECHO 10/09/24: pending
Plan:
-Patient being treated for acute COVID illness. Procalcitonin also elevated, abx per primary service
-Being diuresed with IV Lasix. creatinine stable. Relatively hypotensive. was not on lasix as OP, consider transition to po in next 24 hours
-awaiting echo results, last from 2020 at OSH with results as above
-Remains on 2 L nasal cannula, wean as able
-consider for OP ischemic eval if LBBB new. trop negative x1
-in SR upon review of tele. on verapamil 120mg daily for history of SVT, continued here
-on asa as OP. hgb 10.8
Progress Note - Fresh Meat Grader
Subjective
Date of Service: October 11, 2024
with cough
Objective
Labs:
10/11/24 06:10
10/11/24 06:10
Labs
Hgb 10.8 g/dL (12.0-16.0) L 10/11/24 06:10
Hct 33.2 % (37.0-47.0) L 10/11/24 06:10
Plt Count 205 10^3/uL (130-400) 10/11/24 06:10
Sodium 129 mmol/L (135-145) L 10/11/24 06:10
Potassium 4.5 mmol/L (3.5-5.1) 10/11/24 06:10
BUN 17 mg/dl (7-17) 10/11/24 06:10
Creatinine 0.6 mg/dL (0.6-1.0) 10/11/24 06:10
Glucose 100 mg/dl (70-99) H 10/11/24 06:10
Troponins
10/08/24
21:05
Troponin I < 0.012
Vital Signs and I&O:
Vital Signs
Temp Pulse Resp BP Pulse Ox
98.0 F 92 16 95/60 97
10/11/24 11:17 10/11/24 11:17 10/11/24 11:17 10/11/24 11:17 10/11/24 11:17
Vital Signs
Temp Pulse Resp BP Pulse Ox
98.0 F 92 16 95/60 97
10/11/24 11:17 10/11/24 11:17 10/11/24 11:17 10/11/24 11:17 10/11/24 11:17
Intake & Output
10/09/24 10/10/24 10/11/24 10/12/24
07:59 07:59 07:59 07:59
Intake Total 720 / 720 660 / 660
Output Total 650 / 650 950 / 950
Balance -650 / -650 -230 / -230 660 / 660
--- NOTE | 2024-10-11 14:01 | W.PN.HOSP.TC ---
Today's Communication/Plan
-
Assessment / Plan
Assessment / Plan
General: No Apparent Distress and Comfortable
HEENT: Normocephalic, Atraumatic and Moist Mucous Membranes
Respiratory: Crackles
Cardiac: Regular Rhythm and S1/S2
GI: Soft, Nontender, Nondistended and Normal Bowel Sounds
Musculoskeletal: No Clubbing, No Cyanosis, Edema, Right Lower Extrem and Edema, Left Lower Extrem
Skin: Warm and Dry
Neuro: Awake, Alert, Oriented and AO x 3
Acute hypoxemic respiratory failure secondary to acute chf exacerbation, unknown EF or could even be multifactorial as she is covid +
-iv diuretics, plan to transition in 24hours
-montiro daily weight
-monitor renal function
-i/o's
-wean o2
-leep K >4
-keep Mg >2
-cards following
-2d echo results pending
Covid +, hypoxic
-Continue steroids, dex daily, discussed as curbside with automotive service consultant ID, no concern for re-activaiton of aspergillosis
-Start Antivirals, agrees with risk
-Wean o2
-Iso preacution with drop/contact
-Continue DVT ppx
Aspergillosis hx
-Awaiting call back from PCP about treatment hx, follow up with pulm/ID
Sepsis secondary to acute viral syndrome
-Will check bcx
-Will check sputum cx
-Check legionella and strep UA
-Started on IV Atb, pennie can dc as I suspect this is related to acute viral syndrome
Hypervolemic hyponatremia
-fluid restrict
Hx of unspecified tachycardia
-On asa and CCB
GERD
-Contineu ppi
Anticipated Discharge: 24 - 48 hours
Subjective/Interval History
-
Date of Service: October 11, 2024
seen and examined
no new comaplints
no acute ovenright events
Objective Data
-
Labs:
Laboratory Results
10/11/24
06:10
WBC 2.0 L*
Hgb 10.8 L
Hct 33.2 L
Plt Count 205
Sodium 129 L
Potassium 4.5
Chloride 91 L
Carbon Dioxide 31 H
BUN 17
Creatinine 0.6
Glucose 100 H
Calcium 8.5
Vital Signs:
Vital Signs
Temp Pulse Resp BP Pulse Ox
98.0 F 92 16 95/60 97
10/11/24 11:17 10/11/24 11:17 10/11/24 11:17 10/11/24 11:17 10/11/24 11:17
I&O
10/10/24 10/11/24 10/12/24
06:59 06:59 06:59
Intake Total 720 / 720 540 / 540 120 / 120
Output Total 950 / 950
Balance -230 / -230 540 / 540 120 / 120
[2024-10-11] MEDS: SPIRIVA RESPIMAT 2.5 MCG 2 PUFF INH (15:31)
[2024-10-11] MEDS: STRIVERDI RESPIMAT 2 PUFF INH (15:31)
[2024-10-11] MEDS: PAXLOVID 2X150 MG-100 MG DOSE PACK 1 DOSE PO (21:12)
[2024-10-12] VITALS (10 sets, daily range): BP systolic 91–120; BP diastolic 50–75; BMI 19.8
[2024-10-12 06:10] LABS: Hematocrit 32.4 % (37.0-47.0); Hemoglobin 10.7 g/dL (12.0-16.0); Mean Corpuscular Hgb 27.7 pg (27.0-31.0); Mean Corpuscular Volume 83.9 fL (81.0-99.0); Mean Platelet Volume 8.8 fL (7.4-10.4); Platelet Count 235 10^3/uL (130-400); Red Blood Cell Count 3.86 10^6/uL (4.20-5.40); Red Cell Dist. Width 14.1 % (11.5-14.5); White Blood Cell Count 2.3 10^3/uL (4.8-10.8)
[2024-10-12 06:31] LABS: Blood Urea Nitrogen 25 mg/dl (7-17); Calcium 8.8 mg/dl (8.4-10.2); Carbon Dioxide 29 mmol/L (22-30); Chloride 93 mmol/L (98-107); Estimated Creatinine Clearance 52 ml/min; Glucose 118 mg/dl (70-99); Potassium 4.4 mmol/L (3.5-5.1); Sodium 127 mmol/L (135-145); eGFR > 60.00
[2024-10-12] MEDS: SPIRIVA RESPIMAT 2.5 MCG 2 PUFF INH (07:35)
[2024-10-12] MEDS: STRIVERDI RESPIMAT 2 PUFF INH (07:37)
[2024-10-12] MEDS: ZYRTEC 10 MG PO (07:42)
[2024-10-12] MEDS: HEPARIN 5000 UNITS SC ×2 (07:42→21:22)
[2024-10-12] MEDS: CALAN EXTENDED RELEASE 120 MG PO (07:42)
[2024-10-12] MEDS: LASIX 20 MG PO (07:43)
[2024-10-12] MEDS: PROTONIX 40 MG PO (07:43)
[2024-10-12] MEDS: DECADRON 4 MG PO ×5 (07:43→21:27)
[2024-10-12] MEDS: LOW STRENGTH ASPIRIN 81 MG PO (07:43)
[2024-10-12] MEDS: PAXLOVID 2X150 MG-100 MG DOSE PACK 1 DOSE PO ×2 (08:54→21:21)
--- NOTE | 2024-10-12 10:29 | W.PN.HOSP.TC ---
Today's Communication/Plan
-
likely able to dc home if remains off of o2 today
Assessment / Plan
Assessment / Plan
General: No Apparent Distress and Comfortable
HEENT: Normocephalic, Atraumatic and Moist Mucous Membranes
Respiratory: Crackles
Cardiac: Regular Rhythm and S1/S2
GI: Soft, Nontender, Nondistended and Normal Bowel Sounds
Musculoskeletal: No Clubbing, No Cyanosis, Edema, Right Lower Extrem and Edema, Left Lower Extrem
Skin: Warm and Dry
Neuro: Awake, Alert, Oriented and AO x 3
Acute hypoxemic respiratory failure secondary to acute chf exacerbation, unknown EF or could even be multifactorial as she is covid +
-resolved, off o2 since this AM
-po diuretics inititated this AM
-montiro daily weight
-monitor renal function
-i/o's
-wean o2
-keep K >4
-keep Mg >2
-cards following
-2d echo results pending
Covid +, hypoxic
-Continue steroids, dex daily, discussed as curbside with neuropsychology medical consultant ID, no concern for re-activaiton of aspergillosis
-Started Antivirals, agrees with risk
-Wean o2
-Iso preacution with drop/contact
-Continue DVT ppx
Aspergillosis hx
-More then 10years ago
-Received 2yrs of treatment with full resolution
-Follow up with Dr. Malou Dickson as an outpatient
Sepsis secondary to acute viral syndrome
-Will check bcx
-Will check sputum cx
-Check legionella and strep UA
-Started on IV Atb, pennie can dc as I suspect this is related to acute viral syndrome
Hypervolemic hyponatremia
-fluid restrict
Hx of unspecified tachycardia
-On asa and CCB
GERD
-Contineu ppi
Anticipated Discharge: Within 24 hours
Subjective/Interval History
-
Date of Service: October 12, 2024
seen and exmained
no new complaints
no acyte ovenright events
Objective Data
-
Labs:
Laboratory Results
10/12/24
05:40
WBC 2.3 L*
Hgb 10.7 L
Hct 32.4 L
Plt Count 235
Sodium 127 L
Potassium 4.4
Chloride 93 L
Carbon Dioxide 29
BUN 25 H
Creatinine 0.6
Glucose 118 H
Calcium 8.8
Vital Signs:
Vital Signs
Temp Pulse Resp BP Pulse Ox
97.7 F 115 15 114/75 98
10/12/24 07:35 10/12/24 07:48 10/12/24 07:48 10/12/24 07:40 10/12/24 07:48
I&O
10/11/24 10/12/24 10/13/24
06:59 06:59 06:59
Intake Total 540 / 540 1240 / 1240
Output Total 354 / 354
Balance 540 / 540 886 / 886
--- NOTE | 2024-10-12 10:35 | W.PN.CARDCBS ---
Addendum entered and electronically signed by Demond Tobias MD 10/12/24 11:33:
I saw and examined the patient.
The Telephone Collector's note was reviewed and I agree with the note.
Comment:
GEN: No distress, awake, Ox3
HEENT: supple, anicteric, mmm
LUNGS: scatt rhonchi
CV: Reg, S1/S2, /6 syst LSB, no gallop
ABD: soft, BS+, NT/ND
EXT: No edema
NEURO: Gross non-focal
SKIN: No rash
Plan:
Clinically much improved. I reviewed echo. LVEF is in the low normal to mildly depressed in the setting of a left bundle branch block. Agree with switching verapamil to Toprol. Her blood pressure remains marginal.
Will convert Lasix to 20 mg p.o. daily.
At this point I would let her recover from COVID and we will arrange follow-up to further discuss her cardiomyopathy.
Continue aspirin and Toprol.
Will consider Entresto as outpatient if blood pressure remains stable. Blood pressure currently marginal.
Finish Paxlovid and Decadron.
Eventually would consider adding TOBI inhibitor or Entresto if blood pressure tolerates.
Original Note:
Today's Communication / Plan
-
change verapamil to toprol given low normal EF by echo
po lasix 20mg daily
will arrange OP cardiac follow up with [facility]. consider OP ischemic evaluation
Impression / Plan
-
.
Family Physician: Stephenie Anand
Cardiology: Dr. Eh Chavez, [facility], wants to transition to [facility] upon DC
.
Impression:
Acute hypoxic respiratory failure likely multifactorial
COVID +
Acute HFpEF
Hyponatremia
LBBB, unclear chronicity
SVT
History of syncope
History of aspergillosis
History of COPD
Osteoporosis
GERD
History of sternal fracture in the setting of a fall 08/2019
Holter monitor 11/12/2020 that showed NSR with 2 short runs of SVT
Echo 12/07/2020: Normal LVEF 60%, trace MR, aortic valve trileaflet without evidence of stenosis
ECHO 10/11/24: EF 38% by volumetric assessment, visually appears 50%, global hypokinesis, mild MR, mild with peak/mean gradients 7/4mmHg, trivial pericardial effusion
Plan:
-Patient being treated for acute COVID illness. Procalcitonin also elevated, abx per primary service
-echo this admission with EF 38% by volumetric assessment, however visually appears 50%. by last echo at OSH EF was 60% in 2020.
-will transition verapamil to toprol 25mg daily
-weight continues to trend down if accurate. transitioned to po lasix 20mg daily. was not on lasix prior to admission
-has been weaned off supp O2
-consider for OP ischemic eval as with low normal EF and LBBB, unclear if new. trop negative x1
-in SR upon review of tele. has history of SVT.
-on asa as OP. hgb 10.8
-she would like to follow up with [facility] upon DC, will arrange
Progress Note - Color Coater
Subjective
Date of Service: October 12, 2024
no issues overnight noted
Objective
Labs:
10/12/24 05:40
10/12/24 05:40
Labs
Hgb 10.7 g/dL (12.0-16.0) L 10/12/24 05:40
Hct 32.4 % (37.0-47.0) L 10/12/24 05:40
Plt Count 235 10^3/uL (130-400) 10/12/24 05:40
Sodium 127 mmol/L (135-145) L 10/12/24 05:40
Potassium 4.4 mmol/L (3.5-5.1) 10/12/24 05:40
BUN 25 mg/dl (7-17) H 10/12/24 05:40
Creatinine 0.6 mg/dL (0.6-1.0) 10/12/24 05:40
Glucose 118 mg/dl (70-99) H 10/12/24 05:40
Vital Signs and I&O:
Vital Signs
Temp Pulse Resp BP Pulse Ox
97.7 F 115 15 114/75 98
10/12/24 07:35 10/12/24 07:48 10/12/24 07:48 10/12/24 07:40 10/12/24 07:48
Vital Signs
Temp Pulse Resp BP Pulse Ox
97.7 F 115 15 114/75 98
10/12/24 07:35 10/12/24 07:48 10/12/24 07:48 10/12/24 07:40 10/12/24 07:48
Intake & Output
10/10/24 10/11/24 10/12/24 10/13/24
07:59 07:59 07:59 07:59
Intake Total 720 / 720 660 / 660 1120 / 1120
Output Total 950 / 950 354 / 354
Balance -230 / -230 660 / 660 766 / 766
[2024-10-12] MEDS: TOPROL XL PO (12:04)
--- NOTE | 2024-10-13 00:06 | PTCARENOTE ---
pt desatting to 87% while sleeping and occasionally going back up to 93-97%. Pt placed back on 2L O2 to wear during sleep. 96-100% on 2L. Plan of care ongoing.
[2024-10-13 03:00] VITALS: BP 109/65
[2024-10-13 05:14] VITALS: BMI 19.8
[2024-10-13 06:53] LABS: Hemoglobin 10.8 g/dL (12.0-16.0); Mean Corp Hgb Conc. 33.8 g/dL (33.0-37.0); Mean Corpuscular Hgb 28.6 pg (27.0-31.0); Mean Corpuscular Volume 84.9 fL (81.0-99.0); Platelet Count 233 10^3/uL (130-400); Red Blood Cell Count 3.77 10^6/uL (4.20-5.40); Red Cell Dist. Width 14.1 % (11.5-14.5)
[2024-10-13 07:17] LABS: Blood Urea Nitrogen 30 mg/dl (7-17); Calcium 8.8 mg/dl (8.4-10.2); Carbon Dioxide 30 mmol/L (22-30); Chloride 91 mmol/L (98-107); Estimated Creatinine Clearance 52 ml/min; Glucose 115 mg/dl (70-99); Potassium 4.5 mmol/L (3.5-5.1); Sodium 125 mmol/L (135-145); eGFR > 60.00
[2024-10-13 07:39] VITALS: BP 117/66
[2024-10-13] MEDS: SPIRIVA RESPIMAT 2.5 MCG 2 PUFF INH (07:41)
[2024-10-13] MEDS: STRIVERDI RESPIMAT 2 PUFF INH (07:41)
[2024-10-13] MEDS: LASIX 20 MG PO (08:57)
[2024-10-13] MEDS: DECADRON 4 MG PO ×2 (08:57→12:22)
[2024-10-13] MEDS: LOW STRENGTH ASPIRIN 81 MG PO (08:57)
[2024-10-13] MEDS: TOPROL XL 25 MG PO (08:57)
[2024-10-13] MEDS: ZYRTEC 10 MG PO (08:57)
[2024-10-13] MEDS: HEPARIN 5000 UNITS SC (08:58)
[2024-10-13] MEDS: PROTONIX 40 MG PO (08:58)
[2024-10-13] MEDS: PAXLOVID 2X150 MG-100 MG DOSE PACK 1 DOSE PO (09:07)
--- NOTE | 2024-10-13 10:30 | CM ---
Addendum entered by Billie Leigh 10/13/24 14:26:
IMM benefit explained via phone; form dated and timed @ 1331
Addendum entered by Billie Leigh 10/13/24 13:27:
Referral to [facility] accepted
Plan: Discharge to home today with Home Health services from [facility]
Addendum entered by Billie Leigh 10/13/24 12:48:
CM spoke with patient via phone # [phone]; explained home health recommendation and referral to [facility]; patient is agreeable with plan
Original Note:
CM Consult completed; home health options discussed with patient's son, Thomas, via phone
Referral sent to [facility] via [facility]
Son reported that a member of family will transport patient home when stable for discharge
Plan: Possible discharge tomorrow with home health/VN; CM will monitor for oxygen needs
[2024-10-13 11:19] VITALS: BP 114/65
--- NOTE | 2024-10-13 12:38 | PTCARENOTE ---
currently she is 96% on room air at rest. I walked her to the door and she was 95% with exertion. Dr. Gibbons updated, will continue to monitor.
--- NOTE | 2024-10-13 13:16 | W.PN.HOSP.TC ---
Today's Communication/Plan
-
dc home
More than 30 minutes spent in discharge including
Final examination of the patient
Summarizing hospital stay
Instructions for continuing care to all relevant caregivers
Preparation of discharge records, prescriptions, and referral forms
Total time spent (in minutes): 33mins
Assessment / Plan
Assessment / Plan
Acute hypoxemic respiratory failure secondary to acute chf exacerbation, unknown EF or could even be multifactorial as she is covid +
-resolved, off o2 since this AM
-P.o. diarrhea
-montiro daily weight
-monitor renal function
-i/o's
-wean o2
-keep K >4
-keep Mg >2
-cards following
-2d echo results completed. Per cardiology reported as EF of 38% However visually appears 50%. By last echo at outside hospital EF was 60% in 2020
Covid +, hypoxic, improving
-Continue steroids, dex daily, discussed as curbside with relations manager ID, no concern for re-activaiton of aspergillosis
-Started Antivirals, agrees with risk
-Iso preacution with drop/contact
-Continue DVT ppx
Aspergillosis hx
-More then 10years ago
-Received 2yrs of treatment with full resolution
-Follow up with Dr. Malou Dickson as an outpatient
Sepsis secondary to acute viral syndrome
-Will check bcx
-Will check sputum cx
-Check legionella and strep UA
-Started on IV Atb, pennie can dc as I suspect this is related to acute viral syndrome
Hypervolemic hyponatremia
-fluid restrict
Hx of unspecified tachycardia
-On asa and CCB
GERD
-Contineu ppi
Anticipated Discharge: Today
Subjective/Interval History
-
Date of Service: October 13, 2024
Seen and examined. I personally took her off of oxygen at rest was 97%. Ambulated her in her room for approximately 6 minutes and was able to maintain a SpO2 of greater than 94% without tachypnea nor tachycardia nor shortness of breath
States that she felt well and was ready to go home
Objective Data
-
Labs:
Laboratory Results
10/13/24
06:06
WBC 5.0
Hgb 10.8 L
Hct 32.0 L
Plt Count 233
Sodium 125 L
Potassium 4.5
Chloride 91 L
Carbon Dioxide 30
BUN 30 H
Creatinine 0.6
Glucose 115 H
Calcium 8.8
Vital Signs:
Vital Signs
Temp Pulse Resp BP Pulse Ox
97.9 F 94 16 114/65 98
10/13/24 11:19 10/13/24 11:19 10/13/24 11:19 10/13/24 11:19 10/13/24 11:19
I&O
10/12/24 10/13/24 10/14/24
06:59 06:59 06:59
Intake Total 1240 / 1240 540 / 540
Output Total 354 / 354 850 / 850
Balance 886 / 886 -310 / -310
Physical Exam
-
General: Well Developed, Well Nourished and No Apparent Distress
HEENT: Normocephalic and Atraumatic
Respiratory: Clear to Auscultation
Cardiac: Regular Rhythm and S1/S2
Skin: Warm and Dry
Neuro: Awake, Alert, Oriented and AO x 3
Psych: Calm
--- NOTE | 2024-10-13 13:19 | W.DCSUMMARY ---
Discharge Summary
Discharge Data
Date of Admission: 10/08/24
Date of Discharge: 10/13/24
-
Pending Results: No
Hospital Course
84-year-old female past medical history of COPD, history of aspergillosis, osteoporosis, unspecified tachycardia, GERD, Ipno's esophagus
Presented with acute onset shortness of breath chest discomfort/pressure. Was found to be hypoxemic requiring supplemental oxygen. Believed secondary to heart failure initially as there was a high BNP. Chest x-ray that demonstrated findings
consistent with heart failure and multifocal pneumonia. Chest CT that was negative for pulmonary embolism but did demonstrate small pericardial effusion and bilateral pleural effusions. Therefore started on IV diuresis. 2D echocardiogram report
as below. Cardiology evaluated and recommended. Continue with diuretics. They did recommend changing Lasix to 20 mg daily. ACEi/Entresto was not started inpatient and will need to follow up with outpatient cardiology for initiation as blood
pressure would not tolerate.
Additionally, found to have COVID-19 pneumonia. Started on steroids with dexamethasone and Paxlovid. Tolerated both well. Will be discharged home with Paxlovid to complete course.
Will need outpatient pulmonary cardiology and PCP follow-up
Should also have a sleep study eval with outpatient sleep/pulm medicine
CT Chest
IMPRESSION:
1. No evidence of pulmonary embolism.
2. There are bilateral central prominent groundglass opacities with interlobular septal thickening which is favored to represent mild pulmonary edema, less likely multifocal pneumonia. There is associated small bilateral pleural effusions with
adjacent atelectasis.
3. Small pericardial effusion.
4. Prior mildly displaced sternal fracture.
5. Biapical pleural calcifications which can be seen with prior asbestos exposure.
CXR
IMPRESSION:
Small bilateral pleural effusions with interstitial and bibasilar airspace opacities which may likely represents pulmonary edema, however multifocal pneumonia could appear similar.
2d Echo
CONCLUSIONS
Normal left ventricular chamber size.
Mild concentric left ventricular hypertrophy.
Moderately reduced left ventricular systolic function.
Global hypokinesis with dyssynchrony noted.
LV ejection fraction is 38% by volumetric assessment.
Thickened mitral valve leaflets.
Peak/mean gradients across the mitral valve are 8/4 mmHg.
Mild mitral regurgitation.
Mild aortic stenosis.
Peak/mean gradients across the aortic valve are 7/4 mmHg.
Structurally normal tricuspid valve without significant stenosis or
regurgitation.
Right heart pressures could not be determined.
Trivial pericardial effusion.
No prior echocardiogram is available for review
Discharge Plan
-
Patient Disposition: Home (Routine Discharge)
Discharge Diagnosis/Procedures: Acute hypoxic respiratory failure secondary to covid and heart failure
Condition: Good
Specialty Instructions: Weigh Daily- Call MD for wt gain/loss 3 lbs overnight/5 lbs in 1 week
Activity Restrictions/Additional Instructions:
Presented with acute onset shortness of breath chest discomfort/pressure. Was found to be hypoxemic requiring supplemental oxygen. Believed secondary to heart failure initially as there was a high BNP. Chest x-ray that demonstrated findings
consistent with heart failure and multifocal pneumonia. Chest CT that was negative for pulmonary embolism but did demonstrate small pericardial effusion and bilateral pleural effusions. Therefore started on IV diuresis. 2D echocardiogram report
as below. Cardiology evaluated and recommended. Continue with diuretics. They did recommend changing Lasix to 20 mg daily. ACEi/Entresto was not started inpatient and will need to follow up with outpatient cardiology for initiation as blood
pressure would not tolerate.
Additionally, found to have COVID-19 pneumonia. Started on steroids with dexamethasone and Paxlovid. Tolerated both well. Will be discharged home with Paxlovid to complete course.
Will need outpatient pulmonary cardiology and PCP follow-up
Should also have a sleep study eval with outpatient sleep/pulm medicine
CTChest
IMPRESSION:
1. No evidence of pulmonary embolism.
2. There are bilateral central prominent groundglass opacities with interlobular septal thickening which is favored to represent mild pulmonary edema, less likely multifocal pneumonia. There is associated small bilateral pleural effusions with
adjacent atelectasis.
3. Small pericardial effusion.
4. Prior mildly displaced sternal fracture.
5. Biapical pleural calcifications which can be seen with prior asbestos exposure.
CXR
IMPRESSION:
Small bilateral pleural effusions with interstitial and bibasilar airspace opacities which may likely represents pulmonary edema, however multifocal pneumonia could appear similar.
2d Echo
CONCLUSIONS
Normal left ventricular chamber size.
Mild concentric left ventricular hypertrophy.
Moderately reduced left ventricular systolic function.
Global hypokinesis with dyssynchrony noted.
LV ejection fraction is 38% by volumetric assessment.
Thickened mitral valve leaflets.
Peak/mean gradients across the mitral valve are 8/4 mmHg.
Mild mitral regurgitation.
Mild aortic stenosis.
Peak/mean gradients across the aortic valve are 7/4 mmHg.
Structurally normal tricuspid valve without significant stenosis or
regurgitation.
Right heart pressures could not be determined.
Trivial pericardial effusion.
No prior echocardiogram is available for review
Instructions: Heart failure, COVID-19 in adults - Discharge instructions, *[facility] Heart Failure Instructions
Referrals:
Malou Ferrer DO [Non-Admitting Privileges] - in two to three weeks
Natalie Epstein PA-C [Specified Professional Personl] - 10/28/24 8:20 am (You have a cardiology follow-up appointment at the [facility]. Please call with questions)
Stephenie Anand DO [Family Provider] -
Prescriptions:
New
guaifenesin 100 mg/5 mL Liquid
200 mg PO Q4HPRN PRN (Reason: cough) Qty: 12 0RF
benzonatate 100 mg Capsule
100 mg PO TIDPRN PRN (Reason: cough) Qty: 15 0RF
metoprolol succinate 25 mg Tablet Extended Release 24 Hr
25 mg PO DAILY Qty: 30 0RF
dexamethasone 4 mg Tablet
4 mg PO DAILY Qty: 2 0RF
furosemide 20 mg Tablet
20 mg PO DAILY Qty: 30 0RF
Paxlovid 300 mg (150 mg x 2)-100 mg tablets,dose pack
See Rx Instructions .ROUTE .COMPLEX Qty: 30 0RF
Rx Instructions:
take TWO 150 mg tablets of nirmatrelvir with ONE 100 mg tablet of ritonavir twice daily for 3 days. Waste/dispose of the rest
Continued
cetirizine [Zyrtec] 10 mg Tablet
10 mg PO DAILY
acetaminophen 650 mg Tablet Extended Release
PO
Systane (PF) 0.4-0.3 % Dropperette
omeprazole 20 mg Tablet,Delayed Release (Dr/Ec)
20 mg PO BID
Bevespi Aerosphere 9-4.8 mcg Hfa Aerosol Inhaler
2 puff INHALATION BID
aspirin 81 mg Capsule
81 mg PO DAILY
albuterol-budesonide 90-80 mcg/actuation Hfa Aerosol Inhaler
2 inh INHALATION ONCE
Rx Instructions:
as a single dose; may repeat up to 6 doses per day (12 inhalations)
Discontinued
verapamil 120 mg Tablet Extended Release
120 mg PO DAILY
Discharge Orders:
Discharge Patient (As Directed); Ordered 10/13/24
Ordered By: Adeel Gibbons
Discharge Date and Time
Print Language: ANGUILLAN
[2024-10-13 14:41] VITALS: BP 97/60
--- NOTE | 2024-10-14 13:33 | W.HF.CON ---
Heart Failure
- LV Function
Left ventricular function study result: LV Ejection fraction 36-40%
Ejection Fraction Percentage: 38
- ARNI
Patient already on ARNI: No
Heart Failure ARNI Contraindication: Hypotension
- ACEI/ARB
Patient already on ACEI/ARB: No
Heart Failure ACEI/ARB Contraindication: Hypotension
- Beta Megan
Patient already on Evidence Based Beta Megan: Yes
- Mineralocorticord Receptor Antagonist
Patient already on MRA: No
Heart Failure MRA Contraindication: Hypotension
- SGLT-2 Inhibitor
Patient already on SGLT-2 Inhibitor: No
Heart Failure SGLT-2 Inhibitor Contraindication: Patient Refusal
- NYHA CHF Classification
NYHA CHF Classification Level: Class III - Symptoms w/ min exertion, interferes w/ nml daily activity
- ACC/AHA Stage
ACC/AHA Stage: Stage C: Symptomatic Heart Failure
== END 2024-10-13 16:40 | disposition home health service (06) | DRG 871 ==
LOC: 3 WEST ACU 23:19
PROVIDERS: Nurse Practitioner Family; ADMITTING PHYSICIAN Hospitalist; ATTENDING PHYSICIAN Hospitalist; CONSULT PHYSICIAN Internal Medicine Cardiovascular Disease; EMERGENCY PHYSICIAN Student in an Organized Health Care Education/Training Program; FAMILY PHYSICIAN Family Medicine
PROC: 5A09357 Assistance with Respiratory Ventilation, Less than 24 Consecutive Hours, Continuous Positive Airway Pressure (ICD-10-PCS; 2024-10-08)
DX: A41.89 Other specified sepsis (principal); J12.82 Pneumonia due to coronavirus disease 2019; J96.01 Acute respiratory failure with hypoxia; U07.1 COVID-19; J44.1 Chronic obstructive pulmonary disease with (acute) exacerbation; J44.0 Chronic obstructive pulmonary disease with (acute) lower respiratory infection; J98.11 Atelectasis; I31.39 Other pericardial effusion (noninflammatory); J94.8 Other specified pleural conditions; E87.1 Hypo-osmolality and hyponatremia; I50.9 Heart failure, unspecified; Z11.52 Encounter for screening for COVID-19; K21.9 Gastro-esophageal reflux disease without esophagitis; M81.0 Age-related osteoporosis without current pathological fracture; K22.70 Barrett's esophagus without dysplasia; I44.7 Left bundle-branch block, unspecified; Z88.5 Allergy status to narcotic agent; Z79.82 Long term (current) use of aspirin; Z79.899 Other long term (current) drug therapy; R63.1 Polydipsia; Z82.49 Family history of ischemic heart disease and other diseases of the circulatory system; Z87.891 Personal history of nicotine dependence
CPT/HCPCS: 71045; 71275; 80048; 80053; 83880; 83935; 84145; 84300; 84484; 85025; 85027; 87040; 87070; 87205; 87449; 87502; 87641; 87811; 87899; 93005; 93306; 94640; 94644; 96365; 96367; 96375; 99291; Q9967